=== PATIENT | female | born 1950 | race American Indian/Alaskan Native ===

== ENCOUNTER 2016-10-20 06:06 | Day surgery (SDC) | payer MEDICARE, MEDICAID ==
[2016-10-20] MEDS ORDERED: NACL 0.9% 500 ML 500 ML ONE (06:40)
[2016-10-20 06:59] LABS: Basophils % (Auto) 0.5 % (0.0-1.8); Eosinophils % (Auto) 0.1 % (0.0-4.3); Hematocrit 35.8 % (30.3-42.9); Hemoglobin 12.2 gm/dl (10.1-14.3); Mean Corpuscular HGB Conc 34 % (30-34); Mean Corpuscular Hemoglobin 27 pg (28-32); Mean Corpuscular Volume 80 fl (79-97); Platelet Count 179 K/mm3 (140-440); Red Blood Count 4.47 M/mm3 (3.65-5.03); Red Cell Distribution Width 13.9 % (13.2-15.2); White Blood Count 6.6 K/mm3 (4.5-11.0)
[2016-10-20] MEDS ORDERED: NACL 0.9% 500 ML 500 ML IV SCH (07:00)
[2016-10-20 07:09] LABS: INR 0.93 (0.87-1.13)
[2016-10-20 07:21] LABS: Blood Urea Nitrogen 15 mg/dL (7-17); Calcium 9.1 mg/dL (8.4-10.2); Chloride 100.8 mmol/L (98-107); Glucose 196 mg/dL (65-100); Sodium 139 mmol/L (137-145)
[2016-10-20 07:43] LABS: Potassium TNR mmol/L (3.6-5.0)
[2016-10-20 07:44] LABS: Anion Gap TNR mmol/L; Carbon Dioxide TNR mmol/L (22-30)
[2016-10-20 08:31] LABS: Anion Gap 16 mmol/L; Calcium 9.4 mg/dL (8.4-10.2); Carbon Dioxide 27 mmol/L (22-30); Chloride 102.7 mmol/L (98-107); Glucose 178 mg/dL (65-100); Potassium 4.7 mmol/L (3.6-5.0); Sodium 141 mmol/L (137-145)
[2016-10-20] MEDS ORDERED: HEPARIN/NS 5000 UNIT/500ML(CATH LAB) 1,000 ML IR ONE (08:33)
[2016-10-20] MEDS ORDERED: SUBLIMAZE ONE (08:43)
[2016-10-20] MEDS ORDERED: VERSED ONE (08:43)
[2016-10-20] MEDS: CALAN ONE ×2 (08:57→09:03)
[2016-10-20] MEDS: HEPARIN 10,000 UNITS/10 ML ONE ×2 (08:57→09:03)
[2016-10-20] MEDS: NITROGLYCERIN SYRINGE 3 ML ONE ×2 (08:58→09:03)
[2016-10-20] MEDS: XYLOCAINE 2% INFILTRATI ONE ×2 (08:58→09:00)
--- NOTE | 2016-10-20 09:19 | Short Stay Summary ---
Short Stay Documentation Date of service: 10/20/16 - History H&P: obtained from office - Allergies and Medications Current Medications: Allergies aspirin Allergy (Unverified 10/20/16 06:09) Rash codeine Allergy (Unverified 10/20/16 06:07) Itching Iodinated Contrast Media - IV Dye Allergy (Verified 10/20/16 06:54) Itching latex Allergy (Unverified 10/20/16 06:07) Anaphylaxis levofloxacin [From Levaquin] Allergy (Verified 10/20/16 06:53) muscle ache pt couldnt walk or lift her arms up. Penicillins Allergy (Unverified 10/20/16 06:07) Itching Sulfa (Sulfonamide Antibiotics) Allergy (Unverified 10/20/16 06:08) Anaphylaxis atorvastatin Adverse Reaction (Verified 10/20/16 07:56) muscle spasms All Mycin drugs Allergy (Uncoded 10/20/16 08:24) Anaphylaxis Home Medications Medication Instructions Recorded Confirmed Last Taken Type Albuterol Sulfate [Ventolin HFA] 2 puff IH Q4H PRN 10/20/16 10/20/16 Unknown History Amlodipine Besylate [Norvasc] 2.5 mg PO DAILY 10/20/16 10/20/16 10/20/16 05:00 History Calcitriol [Calcitriol] 0.25 mg PO BID 10/20/16 10/20/16 10/20/16 05:00 History Carvedilol [Coreg] 12.5 mg PO BID 10/20/16 10/20/16 10/20/16 05:00 History Hydrochlorothiazide [Hctz] 12.5 mg PO Q48H 10/20/16 10/20/16 10/19/16 History Levothyroxine [Synthroid] 137 mcg PO QAM 10/20/16 10/20/16 10/20/16 05:00 History Losartan [Cozaar] 100 mg PO QDAY 10/20/16 10/20/16 10/20/16 05:00 History Nabumetone [Relafen] 750 mg PO BID 10/20/16 10/20/16 10/19/16 History Pitavastatin Calcium [LiVALO] 2 mg PO DAILY 10/20/16 10/20/16 10/19/16 History metFORMIN [Glucophage] 500 mg PO BID 10/20/16 10/20/16 10/19/16 History predniSONE [Deltasone] 20 mg PO BID 10/20/16 10/20/16 10/20/16 06:30 History valACYclovir [Valtrex] 500 mg PO DAILY 10/20/16 10/20/16 Unknown History Active Medications Sodium Chloride (Nacl 0.9% 500 Ml) 500 mls @ 50 mls/hr IV DIRECT CLAIRE Stop: 10/20/16 16:59 - Physical exam General appearance: no acute distress Integumentary: no rash HEENT: Atraumatic Lungs: Clear to auscultation Breasts: deferred Heart: Regular rate, Normal S1, Normal S2 Gastrointestinal: normal Female Genitourinary: deferred Rectal Exam: deferred Extremities: no ischemia Neurological: Normal gait - Brief post op/procedure progress note Date of procedure: 10/20/16 Pre-op diagnosis: Chest Pain, abnormal TMST Post-op diagnosis: same Procedure: LHC, LV gram Anesthesia: MAC Findings: See report Surgeon: EKATERINA GONZALES Estimated blood loss: none Pathology: none Condition: stable - Hospital course Hospital course: uneventful - Disposition Condition at discharge: Good Disposition: [id number] TO HOME OR SELFCARE Short Stay Discharge Plan Activity: advance as tolerated Weight Bearing Status: Weight Bear as Tolerated Diet: low fat, low cholesterol, low salt, diabetic Special Instructions: hold Metformin (for 48 hours) Follow up with: SUJIT MCLAUGHLIN MD [Primary Care Provider] - 7 Days
[2016-10-20 09:45] LABS: Blood Urea Nitrogen 15 mg/dL (7-17)
--- NOTE | 2016-10-20 10:06 | Cardiac Catherization Report ---
LEFT HEART CATHETERIZATION INDICATION: Chest pain, abnormal treadmill stress test. ORDERING PHYSICIAN: Renu Fuentes MD PROCEDURES PERFORMED: 1. Selective left and right coronary angiography. 2. Left ventriculography. DESCRIPTION OF PROCEDURE: After obtaining written consent, the patient was draped using sterile technique. A negative Marshal's test was documented in the right forearm. A 2% lidocaine was injected into the right wrist. A 6-Serbian vascular sheath was inserted into the right radial artery. A 6-Serbian JL3.5 catheter was used to selectively engage the left coronary artery. A 6-Serbian JR4 catheter was used to selectively engage the right coronary artery. A 6-Serbian JR4 catheter was used to hand inject the left ventriculogram. No complications occurred during the procedure. Hemostasis was achieved at the end of the procedure using manual pressure. SPECIMEN REMOVED: None. ESTIMATED BLOOD LOSS: Minimal. SEDATION ADMINISTERED: 1 mg of Versed and 50 mcg of IV fentanyl. No complications occurred during the procedure. FINDINGS: HEMODYNAMICS: Aortic pressure 117/82 with an LV systolic pressure of 116 mmHg, LVEDP is measured at 18 mmHg. No significant gradient was noted across the left ventricular outflow tract. CARDIAC STRUCTURES: Left ventricle is normal in size and systolic function, left ventricular ejection fraction is estimated at 60%. CORONARY ANATOMY: 1. This is a codominant circulation. 2. The left main is angiographically normal. 3. The LAD is angiographically normal. 4. The left circumflex artery is angiographically normal. 5. The right coronary artery is angiographically normal. IMPRESSION: 1. Angiographically normal coronary arteries. 2. Normal left ventricular size and systolic function. 3. LVEDP measured at 18 mmHg. RECOMMENDATIONS: Follow up with referring biomedical engineering aide. JOB# [id number] JV/SIRIA
[2016-10-20 12:26] VITALS: BP 130/73
== END 2016-10-20 12:30 | disposition home or self-care (01) ==
LOC: CATHLABREC 06:06
PROVIDERS: ATTEND Internal Medicine
DX: R94.39 Abnormal result of other cardiovascular function study (principal); R07.9 Chest pain, unspecified; D64.9 Anemia, unspecified; J45.909 Unspecified asthma, uncomplicated; F32.9 Major depressive disorder, single episode, unspecified; E11.9 Type 2 diabetes mellitus without complications; E78.5 Hyperlipidemia, unspecified; I10 Essential (primary) hypertension; Z88.5 Allergy status to narcotic agent; Z88.0 Allergy status to penicillin; Z88.2 Allergy status to sulfonamides; Z88.8 Allergy status to other drugs, medicaments and biological substances; Z91.041 Radiographic dye allergy status; Z91.040 Latex allergy status; Z88.1 Allergy status to other antibiotic agents; Z91.018 Allergy to other foods; Z79.899 Other long term (current) drug therapy; Z79.84 Long term (current) use of oral hypoglycemic drugs; Z98.51 Tubal ligation status; Z98.890 Other specified postprocedural states; Z90.49 Acquired absence of other specified parts of digestive tract; Z87.891 Personal history of nicotine dependence; Z82.49 Family history of ischemic heart disease and other diseases of the circulatory system; Z83.3 Family history of diabetes mellitus
CPT/HCPCS: 36415; 80048; 85025; 85610; 85730; 93005; 93010; 93458; C1894; J1644; J2250; J3010; J7040; Q9967

== ENCOUNTER 2016-11-21 13:53 | Outpatient (CLI) | payer MEDICARE, MEDICAID ==
--- NOTE | 2016-11-21 15:46 | Mammography Report ---
BONE DENSITY STUDY: DEFINITIONS: BMD = Bone Mineral Density T-score = BMD related to mean peak bone mass of young adult (mean expressed in Standard Deviation) Z-score = Age matched BMD expressed in SD World Health Organization (WHO) Diagnostic Criteria Normal T-score > -1 SD Osteopenia T-score between -1 and -2.4 SD Osteoporosis T-score -2.5 SD or below FINDINGS: The weighted average BMD of lumbar spine L1-L4 is 0.931 with a T-score of -1.1. The weighted average BMD of hip is 0.927 with a T-score of -0.1. IMPRESSION: The patient's T-score is diagnostic for osteopenia and average relative risk for fracture. NOTE: BMD is not the only risk factor for fracture; also consider factors such as the patient's age, risk of falling, previous osteoporotic fracture, family history of osteoporotic fractures, current smoker, and low body weight. Lindo's triangle is a region of interest in femur, predominantly of trabecular bone. It is not a true anatomic site, and ISCD does not recommend its use clinically.
== END 2016-11-21 13:54 | disposition home or self-care (01) ==
LOC: MAMMO 13:53
PROVIDERS: ATTEND Family Medicine
DX: M85.88 Other specified disorders of bone density and structure, other site (principal)
CPT/HCPCS: 77080

== ENCOUNTER 2020-07-22 09:32 | Outpatient (CLI) | payer MEDICARE ==
--- NOTE | 2020-07-22 10:52 | Mammography Report ---
DEXA BONE DENSITY SCAN INDICATION / CLINICAL INFORMATION: OSTEOPOROSIS. 69 years Female COMPARISON: 11/21/2016 LUMBAR SPINE, L1-L4: - Bone mineral density (BMD) = 0.948 g/cm2. - T-score = -0.9 - Z-score = 0.4 Change (%) since most recent prior (if available): +1.9 LEFT HIP, total : - Bone mineral density (BMD) = 0.907 g/cm2. - T-score = -0.3 - Z-score = 0.3 Change (%) since most recent prior (if available): -2.2 IMPRESSION: 1. WHO Classification: Normal bone density. Fracture Risk: Not Increased. 2. 10-Year Fracture Risk (FRAX) = Major Osteoporotic Not reported.% / Hip: Not reported.% FRAX generally not reported for patients with normal or osteoporotic BMD, in [id number] marti ents younger than age 50, or in patients undergoing pharmacotherapy BMD Reporting Guidelines (ISCD, 2015) BMD Reporting in Postmenopausal Women and in Men Age 50 and Older - T-scores are preferred. - The WHO densitometric classification is applicable. BMD Reporting in Females Prior to Menopause and in Males Younger Than Age 50 - Z-scores, not T-scores, are preferred. This is particularly important in children. - A Z-score of -2.0 or lower is defined as below the expected range for age, and a Z-score above -2.0 is within the expected range for age. - Osteoporosis cannot be diagnosed in men under age 50 on the basis of BMD alone. - The WHO diagnostic criteria may be applied to women in the menopausal transition. http://www.iscd.org/official-positions/9188-sfyh-wapgvhlk-positions-adult/ Signer Name: Antwon Crespo MD Signed: 07/22/2020 10:48 AM Workstation Name: [id number]
== END 2020-07-22 09:33 | disposition home or self-care (01) ==
LOC: MAMMO 09:32
PROVIDERS: ATTEND Family Medicine
DX: Z13.820 Encounter for screening for osteoporosis (principal); M81.0 Age-related osteoporosis without current pathological fracture
CPT/HCPCS: 77080